=== PATIENT | female | born 1970 | race Caucasian/White ===

== ENCOUNTER → 2018-08-07 | Outpatient (CLI) | payer MEDICARE ==
[2018-08-07 15:44] LABS: HCT 41.7 % (34.0-46.0); HGB 14.2 gm/dL (11.4-16.0); MCH 31.7 pg (25.0-35.0); MCHC 34.1 g/dL (31.0-37.0); MCV 92.8 fL (80.0-100.0); Mean Platelet Volume 6.9; Platelet Count 284 k/uL (150-450); RBC 4.49 m/uL (3.80-5.40); RDW 12.2 % (11.5-15.5); WBC 8.8 k/uL (3.8-10.6)
[2018-08-07 18:49] LABS: Erythrocyte Sedimentation Rate 8 mm/hr (0-20)
== END | disposition home or self-care (01) ==
LOC: LABWHC1 15:14
PROVIDERS: ATTEND Physical Medicine & Rehabilitation
DX: M51.17 Intervertebral disc disorders with radiculopathy, lumbosacral region (principal); M47.27 Other spondylosis with radiculopathy, lumbosacral region; F12.90 Cannabis use, unspecified, uncomplicated; R20.2 Paresthesia of skin
CPT/HCPCS: 36415; 85027; 85652; 86140

== ENCOUNTER 2019-10-08 14:38 | Emergency (ER) | payer MEDICARE ==
--- NOTE | 2019-10-08 15:03 | ED ---
Lower Extremity Injury HPI - General Chief Complaint: Extremity Injury, Lower Stated Complaint: right knee Time Seen by Provider: 10/08/19 14:51 Source: patient Mode of arrival: ambulatory Limitations: no limitations - History of Present Illness Initial Comments: 49-year-old female presenting today for chief complaint of right knee pain she states she has had multiple patellar surgeries in the 80s she states she has had notoriously bad knees bilaterally. Patient States that she fell after tripping september 15 denies dislocation. Denies inability to weight bear after but states she has had posterior right knee pain and medial knee pain since the fall. Patient has been ambulating with walker. Patient denies new falls, denies redness or swelling of the knee. Denies new knee pain prior to falling. Denies calf or foot swelling/tenderness. Patient states she answered yes to fevers in triage but states that has been going on since June and is currently being evaluated by infectious disease. - Related Data Allergies Allergy/AdvReac Type Severity Reaction Status Date / Time No Known Allergies Allergy Verified 10/08/19 16:40 Review of Systems ROS Statement: Those systems with pertinent positive or pertinent negative responses have been documented in the HPI. ROS Other: All systems not noted in ROS Statement are negative. Past Medical History Past Medical History: Rheumatoid Arthritis (RA) History of Any Multi-Drug Resistant Organisms: None Reported Past Surgical History: Cholecystectomy, Hysterectomy, Orthopedic Surgery, Tonsillectomy Past Psychological History: No Psychological Hx Reported Smoking Status: Never smoker Past Alcohol Use History: None Reported Past Drug Use History: Marijuana General Exam - General Exam Comments Initial Comments: General: The patient is awake and alert, in no distress, and does not appear acutely ill. Eye: Pupils are equal, round and reactive to light, extra-ocular movements are intact. No nystagmus. There is normal conjunctiva bilaterally. No signs of icterus. Cardiovascular: There is a regular rate and rhythm. No murmur, rub or gallop is appreciated. Respiratory: Lungs are clear to auscultation, respirations are non-labored, breath sounds are equal. No wheezes, stridor, rales, or rhonchi. Musculoskeletal: normal range of motion of the right knee with some discomfort no pain out of proportion. Able to weight-bear noted to scars over the medial lateral aspect. Crepitus is appreciated Strength 5/5 and extensor mechanism intact. Sensation intact of the LE b/l. DP pulses equal bilaterally 2+. Neurological: A&O x 3. CN II-XII intact grossly, There are no obvious motor or sensory deficits. Coordination appears grossly intact. Speech is normal. Skin: Skin is warm and dry and no rashes or lesions are noted. Psychiatric: Cooperative, appropriate mood & affect, normal judgment. Limitations: no limitations Course Vital Signs 10/08/19 14:41 Temperature 98.8 F Pulse Rate 68 Respiratory 18 Rate Blood Pressure 134/98 O2 Sat by Pulse 98 Oximetry Medical Decision Making - Medical Decision Making 49-year-old male presenting today for chief complaint of cc right knee pain, story of numerous surgeries. Patient is crepitus on physical examination no swelling no redness. There are numerous scarring noted from previous procedures. Patient is neurovascularly intact. Some posterior knee pain ultrasound negative for DVT. XR (-) for acute fracture. Patietn weight bearing, no acute fever. patient appeared to have a septic joint this time there was a noted lesion that they could not rule osteal abnormality. Discussed need for bone scan patient imaging studies at this time she is agreeable to care plan of discharge with outpatient orthopedic follow-up with Dr. Juan. Return parameters were discussed the patient was discharged appearing well Disposition Clinical Impression: Fall, Right knee pain, Lesion of bone of knee Disposition: HOME SELF-CARE Condition: Good Instructions (If sedation given, give patient instructions): Knee Pain (ED) Additional Instructions: Please use medication as discussed. Please follow-up with your orthopedic evaluation in the next 2 days of symptoms have not improved. recommend outpatient bone scan with PCP to ensure no masses/bone lesions. Please return to emergency room if the symptoms increase or worsen or for any other concerns. Is patient prescribed a controlled substance at d/c from ED?: No Referrals: Nonstaff,Physician [Primary Care Provider] - 1-2 days Time of Disposition: 16:32
--- NOTE | 2019-10-08 15:25 | XR ---
EXAMINATION TYPE: XR knee complete RT DATE OF EXAM: 10/08/2019 COMPARISON: NONE HISTORY: Pain TECHNIQUE: Three views are submitted. FINDINGS: Joint spaces are preserved. Osseous structures are intact. No acute fracture seen. There is cortic al thickening along the lateral margin of the proximal tibia. There is arthropathy of the knee joint and severe changes at patellofemoral joint. Chondrocalcinosis noted. IMPRESSION: 1. Severe arthropathy patellofemoral joint with mild changes involving the medial compartment of the knee joint. Differential diagnosis includes osteoarthritis and depositional arthropathy. 2. Cortical thickening along the proximal lateral margin of the tibia. Osteochondroma the differentia l diagnosis. Recommend bone scan..
--- NOTE | 2019-10-08 16:28 | US ---
EXAMINATION TYPE: US venous doppler duplex LE RT DATE OF EXAM: 10/08/2019 4:17 PM COMPARISON: NONE CLINICAL HISTORY: posterior right knee pain. Patient states she twisted her knee. No redness. No sw elling. No hx DVT. Not on blood thinners. SIDE PERFORMED: Right TECHNIQUE: The lower extremity deep venous system is examined utilizing real time linear array sonog [place] with graded compression, doppler sonography and color-flow sonography. VESSELS IMAGED: External Iliac Vein (EIV) Common Femoral Vein Deep Femoral Vein Greater Saphenous Vein * Femoral Vein Popliteal Vein Small Saphenous Vein * Proximal Calf Veins (* superficial vessels) Right Leg: Negative for DVT IMPRESSION: 1. No diagnostic evidence of DVT
[2019-10-08 17:07] VITALS: BP 140/88; PULSE 71; RESP 16; TEMP 98
== END 2019-10-08 17:04 | disposition home or self-care (01) ==
LOC: EC 14:38
DX: M89.9 Disorder of bone, unspecified (principal); M25.561 Pain in right knee; M24.80 Other specific joint derangements of unspecified joint, not elsewhere classified; M06.9 Rheumatoid arthritis, unspecified
CPT/HCPCS: 99284